=== PATIENT | female | born 1975 | race Caucasian/White ===

== ENCOUNTER → 2020-03-03 | Outpatient (CLI) | payer BC ==
[~2020-03-03] MED LIST: DULA1.5P INJ; IBUP-1222 PO; OXYC-302 PO; PHEN37.53 PO; vitamin b12 INJ
[2020-03-03 10:14] LABS: ALANINE AMINOTRANSFERASE 25 U/L (12-78); ALBUMIN 3.6 g/dL (3.4-5.0); ANION GAP 3 mmol/L (5-15); CALCIUM 8.7 mg/dL (8.5-10.1); CHLORIDE 113 mmol/L (98-107); CREATININE 0.76 mg/dL (0.55-1.02)
[2020-03-03 10:17] LABS: ALKALINE PHOSPHATASE 57 U/L (45-117); BILIRUBIN,TOTAL 0.2 mg/dL (0.2-1.0); TOTAL PROTEIN 6.7 g/dL (6.4-8.2)
== END | disposition home or self-care (01) ==
LOC: STAR 08:49
PROVIDERS: ATTEND Otolaryngology
DX: Z01.818 Encounter for other preprocedural examination (principal); J32.0 Chronic maxillary sinusitis; J34.2 Deviated nasal septum
CPT/HCPCS: 36415; 80053; 93005

== ENCOUNTER 2020-03-05 11:50 | Outpatient (CLI) | payer BC | END 2020-03-05 23:59 | disposition home or self-care (01) | LOC: STAR 11:50 | PROVIDERS: ATTEND Anesthesiology | DX: Z01.818 Encounter for other preprocedural examination (principal); Z11.59 Encounter for screening for other viral diseases | CPT/HCPCS: 36415; 87635 ==

== ENCOUNTER 2020-03-09 06:20 | Day surgery (SDC) | payer BC ==
[~2020-03-09] VITALS: Ht 160 cm; Wt 77.2 kg
[2020-03-09] MEDS ORDERED: BACITRACIN OINT 500U/GM, 15 GM ONE (06:50)
[2020-03-09] MEDS ORDERED: LIDOCAINE 1%-EPI 1:100K, 20ML ONE (06:50)
[2020-03-09] MEDS ORDERED: BACITRACIN 50,000 UNIT ONE (06:50)
[2020-03-09] MEDS ORDERED: EPINEPHRINE TOPICAL SOLN 1 MG/ML, 30ML ONE (06:50)
[2020-03-09] MEDS ORDERED: LACTATED RINGERS 1,000 ML IV SCH (07:04)
[2020-03-09 07:07] VITALS: BP 120/73
[2020-03-09 07:24] LABS: HCG UR SG 1.012 (1.003-1.030)
[2020-03-09] MEDS ORDERED: CHLORHEXIDINE 15 ML UDC MM ONE (07:30)
[2020-03-09] MEDS ORDERED: LIDOCAINE-MPF 1%, 2ML INFIL ONE (07:30)
[2020-03-09] MEDS ORDERED: DIAZEPAM 5 MG TABLET PO ONE (08:00)
[2020-03-09] MEDS ORDERED: ACETAMINOPHEN 500 MG TABLET PO ONE (08:00)
[2020-03-09] MEDS ORDERED: ONDANSETRON ODT 8 MG PO ONE (08:00)
[2020-03-09] MEDS ORDERED: PROPOFOL 50 ML ONE (08:10)
[2020-03-09] MEDS ORDERED: MIDAZOLAM 1 MG/ML, 2ML ONE (08:10)
[2020-03-09] MEDS ORDERED: FENTANYL PF 250 MCG/5ML ONE (08:11)
[2020-03-09] MEDS ORDERED: DEXAMETHASONE 4 MG/ML, 1ML ONE (08:33)
[2020-03-09] MEDS ORDERED: SUCCINYLCHOLINE 20 MG/ML, 10ML ONE (08:33)
[2020-03-09] MEDS ORDERED: ONDANSETRON 2MG/ML, 2ML ONE (08:33)
[2020-03-09] MEDS ORDERED: ROCURONIUM 10 MG/ML,10ML ONE (08:33)
[2020-03-09] MEDS ORDERED: CEFAZOLIN 1,000 MG ONE (08:33)
[2020-03-09] MEDS ORDERED: EPHEDRINE 50 MG/ML, 1ML IM PRN (09:00)
[2020-03-09] MEDS ORDERED: DIPHENHYDRAMINE 50 MG/ML, 1ML IVPush PRN (09:00)
[2020-03-09] MEDS ORDERED: OXYcodone 5 MG/5 ML ORAL.SOL UDC PO PRN (09:00)
[2020-03-09] MEDS ORDERED: ONDANSETRON 2MG/ML, 2ML IVPush PRN (09:00)
[2020-03-09] MEDS ORDERED: DIAZEPAM 5 MG/ML, 2ML IVPush PRN (09:00)
[2020-03-09] MEDS ORDERED: LABETALOL 5MG/ML, 20ML IV PRN (09:00)
[2020-03-09] MEDS ORDERED: MEPERIDINE/PF 25MG/0.5ML IVPush PRN (09:00)
[2020-03-09] MEDS ORDERED: PROMETHAZINE 25 MG/ML, 1ML IVPush PRN (09:00)
[2020-03-09] MEDS ORDERED: HYDROmorphone 1 MG/ML, 1ML INJ IVPush PRN (09:00)
[2020-03-09] MEDS ORDERED: DIPHENHYDRAMINE 50 MG/ML, 1ML ONE (09:00)
[2020-03-09] MEDS ORDERED: FENTANYL PF 100 MCG/2ML IV PRN (09:00)
[2020-03-09] MEDS ORDERED: EPHEDRINE 50 MG/ML, 1ML IVPush PRN (09:00)
[2020-03-09] MEDS ORDERED: PROPOFOL 10 MG/ML, 20ML ONE (09:00)
[2020-03-09] MEDS ORDERED: OXYcodone 5 MG/5 ML ORAL.SOL UDC ONE (10:25)
== END 2020-03-09 12:05 | disposition home or self-care (01) ==
LOC: OUT 06:20
PROVIDERS: ATTEND Otolaryngology
DX: J32.0 Chronic maxillary sinusitis (principal); H05.402 Unspecified enophthalmos, left eye; Z79.899 Other long term (current) drug therapy; Z82.5 Family history of asthma and other chronic lower respiratory diseases
CPT/HCPCS: 31255; 31267; 81025; 82962; 87070; 87075; 87077; 87186; 87205; 88304; J0330; J0690; J1100; J1200; J2250; J2405; J2704; J3010; J3490; J7120; Q0162

== ENCOUNTER 2020-03-16 06:00 | Day surgery (SDC) | payer BC ==
[2020-03-03 09:56] VITALS: BP 121/88
[~2020-03-16] VITALS: Ht 160 cm; Wt 79.1 kg
[2020-03-16] MEDS ORDERED: OXYMETAZOLINE NASAL SPRAY 0.05%, 15ML ONE ×2 (06:30→07:05)
[2020-03-16 06:39] VITALS: BP 121/88
[2020-03-16 06:59] LABS: HCG UR SG 1.029 (1.003-1.030)
[2020-03-16] MEDS ORDERED: CHLORHEXIDINE 15 ML UDC MM ONE (07:00)
== END 2020-03-16 08:25 | disposition home or self-care (01) ==
LOC: OUT 06:00
PROVIDERS: ATTEND Otolaryngology
DX: J32.8 Other chronic sinusitis (principal); Z11.59 Encounter for screening for other viral diseases; Z79.899 Other long term (current) drug therapy; Z88.1 Allergy status to other antibiotic agents; Z88.0 Allergy status to penicillin
CPT/HCPCS: 81025; 82962; 87635